=== PATIENT | male | born 1985 | race Hispanic/Latino ===

== ENCOUNTER 2022-12-29 14:39 | Emergency (ER) | payer SELFPAY ==
[~2022-12-29] VITALS: Ht 170.2 cm; Wt 77.1 kg
[2022-12-29 15:09] VITALS: BP 162/110
[2022-12-29] MEDS ORDERED: LACTATED RINGERS 1,000 ML IV STA (15:37)
[2022-12-29 15:54] LABS: BASOPHIL # 0.1 10^3/uL (0.0-0.1); BASOPHIL % 0.6 % (0.0-0.2); EOSINOPHIL % 0.2 % (0.0-5.0); LYMPHOCYTES # 2.21 10^3/uL1 (1.0-4.8); LYMPHOCYTES % 26.6 % (24.0-44.0); MEAN CORP HGB 29.6 pg (26-34); MONOCYTES # 0.8 10^3/uL (0.3-0.8); NEUTROPHIL # 5.2 10^3/uL (1.8-7.7); NEUTROPHILS % 62.5 % (41.0-85.0); PLATELET COUNT 189 10^3/uL (150-400); RED CELL DISTRIBUTION WIDTH 12.5 % (11.5-14.5)
[2022-12-29 15:55] LABS: BILIRUBIN,URINE NEGATIVE (NEGATIVE); UROBILINOGEN,URINE 0.2 E.U./dL (0.2)
[2022-12-29] MEDS ORDERED: LACTATED RINGERS 1,000 ML ONE (16:05)
[2022-12-29 16:12] LABS: CARBON DIOXIDE 27.5 mmol/L (20.0-32)
--- NOTE | 2022-12-29 16:46 | DIREP ---
PROCEDURE:CT ABDOMEN/PELVIS W/ CONTRAST COMPARISON:[facility], CT, CT CHEST ABDOMEN PELVIS WITH CONTR, 10/21/2020, 02:41 AM. INDICATIONS:RUQ pain TECHNIQUE:Axial images were created through the abdomen and pelvis with non-ionic intravenous contrast material. No oral contrast was administered. Sagittal and coronal reconstructions were performed from source images. FINDINGS: LUNG BASES:Thick linear density in the right lung base measures 4 cm in length, likely atelectasis or LIVER:Diffusely diminished hepatic attenuation consistent with hepatic steatosis. No significant liver lesions are identified. Liver is enlarged. small cyst right lobe. BILIARY:The gallbladder is surgically absent. There is no biliary ductal dilatation. PANCREAS:No lesion, fluid collection, ductal dilatation, or atrophy. SPLEEN:No enlargement or focal lesion. ADRENALS:Unremarkable URINARY TRACT:Symmetric enhancement of the kidneys without cystic or solid mass. No hydronephrosis. AORTA/VASCULAR:No aneurysm of the aorta. RETROPERITONEUM:Normal. No mass or adenopathy. BOWEL/MESENTERY:No bowel obstruction. Mild fatty change in the cecum, ascending colon, transverse skull: Wall suggesting chronic inflammatory process. Normal appendix. ABDOMINAL WALL:Tiny fat containing hernia just above the umbilicus. PELVIC ORGANS:Normal. No visible mass. Pelvic organs appropriate for patient age. BONES:Normal for age. No bony lesion or acute fracture. OTHER:Negative. CONCLUSION: 1. Enlarged fatty liver. 2. Mild fatty change in the wall of the right colon and transverse colon suggesting chronic inflammatory processes. Dictated by: Chino Bess M.D. on 12/29/2022 at 03:39 PM Read in [place]
--- NOTE | 2022-12-29 16:53 | ER.PDOC ---
General Chief Complaint: Abdomen Pain Stated Complaint: ABDOMINAL PAIN Time seen by MD: 15:35 Source: patient Exam Limitations: no limitations History of Present Illness Initial Comments Abdominal pain for 5 days. Patient has liver cirrhosis. He told me that he was seen at [facility] ED a few days ago, and his liver enzymes were elevated. He was advised to be admitted but he declined. He is nauseated but no vomiting. No fever or chills. Severity/Quality: moderate, dullness Radiation: no radiation Associated Symptoms: nausea/vomiting Exacerbated by: nothing Relieved By: nothing Allergies: Coded Allergies: ketamine (Verified Allergy, Unknown, 12/29/22) morphine (Verified Allergy, Unknown, 12/29/22) Vital Signs First Vital Signs Date Time Temp Pulse Resp B/P (MAP) Pulse Ox O2 Delivery O2 Flow Rate FiO2 12/29/22 15:09 97.9 121 18 162/110 (127) 94 Room Air* 0 21 Last Vital Signs Date Time Temp Pulse Resp B/P (MAP) Pulse Ox O2 Delivery O2 Flow Rate FiO2 12/29/22 15:09 97.9 121 18 94 12/29/22 15:09 162/110 (127) Room Air* 0 21 Past Medical History Medical History: no pertinent history Surgical History: cholecystectomy Family History Significant Family History: no pertinent family hx Social History Smoking: greater than 1 pack/day Alcohol Use: heavy Drug Use: none Constitutional: no symptoms reported EENTM: no symptoms reported Respiratory: no symptoms reported Cardiovascular: no symptoms reported Gastrointestinal: see HPI All Other Systems: Reviewed and Negative Physical Exam General Appearance: No Apparent Distress, WD/WN HEENT: PERRL/EOMI, Normal ENT Inspection, TMs Normal, Pharynx Normal Neck: Non-Tender, Full Range of Motion, Supple, Normal Inspection Respiratory: chest non-tender, lungs clear, normal breath sounds, no respiratory distress, no accessory muscle use Cardiovascular: Normal Peripheral Pulses, Regular Rate, Rhythm, No Edema, No Gallop, No JVD, No Murmur, Tachycardia Gastrointestinal: Normal Bowel Sounds, No Organomegaly, No Pulsatile Mass, Guarding, Tenderness (RUQ) Back: Normal Inspection, No CVA Tenderness, No Vertebral Tenderness Extremities: Normal Range of Motion, Non-Tender, Normal Inspection, No Pedal Edema, No Calf Tenderness, Normal Capillary Refill, Pelvis Stable 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 (12/29/22 15:37) PT (12/29/22 15:37) Ct Abd/Pel With Iv Contrast (12/29/22 15:37) Partial Thromboplastin Time. (12/29/22 15:37) Urinalysis (12/29/22 15:37) Ammonia (12/29/22 15:37) Ringer's Solution,Lactated (Lactated Rin (12/29/22 15:37) Ringer's Solution,Lactated (Lactated Rin (12/29/22 16:05) Vital Signs Date Time Temp Pulse Resp B/P (MAP) Pulse Ox O2 Delivery O2 Flow Rate FiO2 12/29/22 15:09 97.9 121 18 94 12/29/22 15:09 97.9 121 18 12/29/22 15:09 97.9 121 18 162/110 (127) 94 Room Air* 0 21 Laboratory Tests Test 12/29/22 15:46 White Blood Count 8.3 10^3/uL (4.5-11.0) Red Blood Count 5.30 10^6/uL (4.50-5.90) Hemoglobin 15.7 g/dL (13.9-16.3) Hematocrit 44.8 % (37.0-53.0) Mean Corpuscular Volume 84.5 fL (78-100) Mean Corpuscular Hemoglobin 29.6 pg (26-34) Mean Corpuscular Hemoglobin Concent 35.0 g/dL (33-36.5) Red Cell Distribution Width 12.5 % (11.5-14.5) Platelet Count 189 10^3/uL (150-400) Mean Platelet Volume 9.2 fL (7.8-11.0) Neutrophils (%) (Auto) 62.5 % (41.0-85.0) Lymphocytes (%) (Auto) 26.6 % (24.0-44.0) Monocytes (%) (Auto) 10.0 % (5.0-12.0) Neutrophils # (Auto) 5.2 10^3/uL (1.8-7.7) Lymphocytes # (Auto) 2.21 10^3/uL1 (1.0-4.8) Monocytes # (Auto) 0.8 10^3/uL (0.3-0.8) Absolute Immature Granulocyte (auto 0.01 10^3 u/L (0-2) Absolute Eosinophils (auto) 0.0 10^3/uL (0.0-0.2) Immature Granulocytes % 0.10 % (0.00-0.50) Eosinophils % 0.2 % (0.0-5.0) Basophils % 0.6 % (0.0-0.2) H Basophils # 0.1 10^3/uL (0.0-0.1) Prothrombin Time 12.6 SEC (9.1-11.5) H Prothrombin Time INR (Non-Therap) 1.2 Activated Partial Thromboplast Time 25.8 SEC (22.5-33.1) Urine Collection Type UNKNOWN Urine Color STRAW Urine Appearance CLEAR Urine Bilirubin NEGATIVE (NEGATIVE) Urine Ketones NEGATIVE (NEGATIVE) Urine Specific [place] <=1.005 (1.005-1.030) Urine pH 5.5 (4.5-8.0) Urine Protein NEGATIVE (NEGATIVE) Urine Urobilinogen 0.2 E.U./dL (0.2) Urine Nitrate NEGATIVE (NEGATIVE) Urine Leukocyte Esterase NEGATIVE (NEGATIVE) Urine Glucose (Auto)(UA) NEGATIVE (NEGATIVE) Urine Blood NEGATIVE (NEGATIVE) Sodium Level 140 mmol/L (132-145) Potassium Level 3.0 mmol/L (3.6-5.2) L Chloride Level 101.0 mmol/L (96-109) Carbon Dioxide Level 27.5 mmol/L (20.0-32) Anion Gap 14.5 Blood Urea Nitrogen 4 mg/dL (7-18) L Creatinine 0.57 mg/dL (0.59-1.40) L Estimated GFR () 192.6 (>/=60) Est GFR (CKD-EPI)(Non-Afr [place]) 159.1 (>/=60) BUN/Creatinine Ratio 7.0 Glucose Level 126 mg/dL (70-110) H Calcium Level 8.3 mg/dL (8.4-10.5) L Total Bilirubin 1.5 mg/dL (0.2-1.0) H Aspartate Amino Transferase (AST) 67 U/L (0-35) H Alanine Aminotransferase (ALT) 66 U/L (12-78) Alkaline Phosphatase 196 U/L (50-136) H Ammonia 33 umol/L (11-35) Total Protein 7.9 g/dL (6.4-8.2) Albumin 3.8 g/dL (3.4-5.0) Globulin 4.1 Albumin/Globulin Ratio 0.926 Lipase 39 U/L (16-77) Progress Progress CBC is normal, ammonia is 33, potassium is 3.0, glucose 126, BUN is 4, total bilirubin is 1.5, AST 6 7, ALT 6 6, alkaline phosphatase is 196. Urinalysis is negative for UTI. While CT abdomen/pelvis was pending, patient did not want to wait any longer, so he signed and left AGAINST MEDICAL ADVICE. He understands that leaving AGAINST MEDICAL ADVICE may result in worsening condition and . ER DEPART Departure Time of Disposition: 16:52 Disposition: 07 LEFT AGAINST MEDICAL ADVICE Impression: Primary Impression: Abdominal pain Additional Impressions: Liver cirrhosis Hypokalemia Condition: Against Medical Advice Referrals: PCP,UNKNOWN (PCP) PRIMARY CARE PROVIDER Duration or Time Spent with Pa: 30 min Problem Qualifiers Primary Impression: Abdominal pain Abdominal location: right upper quadrant Qualified Codes: R10.11 - Right upper quadrant pain Additional Impressions: Liver cirrhosis Hepatic cirrhosis type: unspecified hepatic cirrhosis Ascites presence: unspecified Qualified Codes: K74.60 - Unspecified cirrhosis of liver SCOTT ROSAS MD Dec 29, 2022 16:53
== END 2022-12-29 16:35 | disposition home or self-care (01) ==
LOC: ER 14:39
DX: K74.60 Unspecified cirrhosis of liver (principal); R18.8 Other ascites; E87.6 Hypokalemia; R10.9 Unspecified abdominal pain; F17.210 Nicotine dependence, cigarettes, uncomplicated; Z90.49 Acquired absence of other specified parts of digestive tract; Z88.5 Allergy status to narcotic agent
CPT/HCPCS: 99285; 74177; 96360; 81003; 80053; 85025; 36415; 82140; 83690; 85610; 85730; J7120; Q9965

== ENCOUNTER 2022-12-29 17:01 | Emergency (ER) | payer SELFPAY ==
[~2022-12-29] VITALS: Ht 170.2 cm; Wt 79.4 kg
--- NOTE | 2022-12-29 19:04 | NUR ---
ARRIVAL PT AMBULATORY TO ER WITH COMPLAINT OF ABDOMINAL PAIN FOR 5-6 DAYS. EXPERIENCING N/V/D. VS AND ASSESSMENT COMPLETE CHARTED.
[2022-12-29 19:10] VITALS: BP 163/118
--- NOTE | 2022-12-29 19:50 | NUR ---
ELOPED DR ROSAS TO ROOM, PT ELOPED WITHOUT DISCUSSION WITH STAFF. ELOPEMENT NOT WITNESSED.
== END 2022-12-29 19:50 | disposition left against medical advice (07) ==
LOC: ER 17:01
DX: Z53.21 Procedure and treatment not carried out due to patient leaving prior to being seen by health care provider (principal)